=== PATIENT | female | born 1985 | race Caucasian/White ===

== ENCOUNTER 2025-01-18 10:22 | Outpatient (AMB) | payer MEDICAID, SELFPAY ==
[2025-01-18 10:43] VITALS: BP 117/79; PULSE 90; RESP 18; TEMP 36.3; O2SAT 98; BMI 31.8
--- NOTE | 2025-01-18 10:43 | OBCLNT_ITS ---
Vital Signs 01/18/25 10:43 Height 1.6 m Height Method Stated Weight 81.42 kg Weight Measurement Method Standing Scale BMI 31.8 BP 117/79 Blood Pressure Source Automatic Cuff Blood Pressure Location Right Upper Arm Position Sitting Respiration 18 Pulse 90 Pulse Source Monitor Temp 97.4 F Temp Source Temporal Artery Scan Pulse Oximetry (%) 98 Oxygen Delivery Method Room Air Allergies/Home Meds Allergies & Medications Allergies No Known Allergies Allergy (Verified 01/18/25 10:44) Medication Reconciliation prenat.vits,anel,[id number]-[id number] 1 tab PO QDAY 60 days #60 tabs 03/16/20 [Rx Conf irmed 01/18/25] Intake Visit Data Collection New Patient or Established: Established Patient (seen at [facility] within 3 years) Reason for Visit:: OBI TRANSFER Seen by Clinical Staff ONLY (RN/MA): 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 Do You Feel Safe at Home: Yes Authorities Contacted: N/A PCP or OBGYN visit in last 3 months: No Hx Now: Yes Are you currently on any form of Control: No Last menstrual period: 05/17/24 Pain Present Currently: No Pain Scale Used: Wooten-Oakley/Numerical Pain scale:: 0 Smoking Status Smoking Status: Never smoker Immunizations Flu Vaccine in the Last 12 Months: No Flu Vaccine Exclusion Criteria: No Exclusion Criteria Questionnaires Covid-19 Vaccine Questionnaire Has patient been vacinated for Covid-19 Have you been vacinated for Covid-19: No PHQ-9 PHQ-2 Over the last 2 weeks, how often have you been bothered by any of the following problems? 1. Little interest or pleasure in doing things: not at all 2. Feeling down, depressed, or hopeless: not at all Total score: 0 PHQ-9 3. Trouble falling or staying asleep, or sleeping too much: Not at all 4. Feeling tired or having little energy: Not at all 5. Poor appetite or overeating: Not at all 6. Feeling bad about yourself - or that you are a failure or have let yourself or your family down: Not at all 7. Trouble concentrating on things, such as reading the newspaper or watching television: Not at all 8. Moving or speaking so slowly that other people could have noticed? - Or the opposite - being so fidgety or restless that you have been moving around a lot more than usual: not at all 9. Thoughts that you would be better off or of hurting yourself in some way: Not at all Total score: 0 If you checked off any problems, how difficult have these problems made it for you to do your work, take care of things at home, or get along with other people?: not difficult at all Source: Developed by Drs. Amauri Parra, Barbara Pierce, Omega Leyva and colleagues, with an educational aly from [employer]. Depression screen completed yes Social History Living Situation History Marital Status: Lives With: Family Housing: House Tobacco History Smoking Status: Never smoker Second Hand Smoke Exposure: No Alcohol History Alcohol Intake: Never Domestic Abuse History Do You Feel Safe at Home: Yes History of Present Illness HPI Narrative 39-year-old 11 para 7 for OBI. Patient is a transfer from [facility] with records. She reports that she has had no problems so far with the . Her LMP May 15, 2024. Estimated due date is February 19, 2025. First ultrasound was October 26, 2024. Patient was 23 weeks 3 days and this confirmed her LMP dates. She then had another ultrasound at [facility] December 31. Patient was 33 weeks 3 days and measuring in the 50th percentile. No previa was noted. Normal fluid baby was vertex. No anomalies noted patient has a history of asthma. She reports that she only gets symptomatic during the winter times. She uses an albuterol inhaler when she is symptomatic. Denies any wheezing or symptoms at this time. She has not had any surgeries. And denies social habits. Patient is A+, antibody screen negative, RPR nonreactive, rubella NI immune, hepatitis B negative, HIV negative, GC and Chlamydia were negative. Normal 1 hour GTT. Hemoglobin A1c was 4.9. Her last H&H was 11.8/and 36.6. NIPT, AFP and carrier screens all negative. Denies any leaking or bleeding right now. No contractions patient had concerns about 2 previous pregnancies. She reports that with the last and 3rd to last or both augmented with Pitocin. And subsequently developed hemorrhage. Her last she needed to have a Bakri balloon placed. 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 Transfer from [facility] with records. This is patient's 11th and she has 7 kids at home. History of hemorrhage with 2 of her last 3 babies. Her last menstrual period May 15, 2024. EDC by LMP is February 19, 2025. That is confirmed by her 23-week ultrasound at 33-week ultrasound. Reports good movement. Denies leaking, bleeding, contractions continue PNV, CB C and CMP today. discuss ptl precaution, fkc BID. rtc 2 week obc continue PNV, CBC and CMP to day. discuss ptl precaution, fkc BID. rtc 2 week obc, GBS today Menstrual History Menstrual reliability: definite Flow: normal Menstrual regularity: regular Monthly: Yes Age at menarche: 13 On control pills at conception: No OB History : 11 Para: 7 Hx Total # of Abortions (Spontaneous & Elective): 3 # of Living Children: 7 Delivery History 1st : Child's name: YUNG GORMAN date: 04/10/05 sex: male Gestational age at delivery (weeks): 40 Delivery type: vaginal weight (lbs): 3175.147 g History of depression before or after : No 2nd : Child's name: ANTHONY REINOSO date: 02/20/08 sex: male Gestational age at delivery (weeks): 40 Delivery type: vaginal weight (lbs): 3175.147 g History of depression before or after : No 3rd : Child's name: ALLA REINOSO date: 01/01/10 sex: male Gestational age at delivery (weeks): 40 Delivery type: vaginal weight (lbs): 3175.147 g History of depression before or after : No 4th : Child's name: MILE CANDELARIA date: 12/29/11 sex: male Gestational age at delivery (weeks): 40 Delivery type: vaginal weight (lbs): 3175.147 g History of depression before or after : No 5th : Child's name: LARRY CRUZ date: 08/23/17 sex: male Gestational age at delivery (weeks): 40 Delivery type: vaginal weight (lbs): 3175.147 g History of depression before or after : Yes 6th : Child's name: NACHO GOODMAN date: 03/15/20 sex: female Gestational age at delivery (weeks): 40 Delivery type: vaginal weight (lbs): 3175.147 g History of depression before or after : Yes 7th : Child's name: RONALDO GOODMAN date: 02/17/22 sex: male Gestational age at delivery (weeks): 40 Delivery type: vaginal weight (lbs): 3175.147 g History of depression before or after : Yes Infection History & Risk Evaluation History of STDs: none Genetic Screening & History Genetic Screening/Teratology Counseling - Includes patient, baby's father, or anyone in either family with: 1. Patient's age 35 years or older as of estimated date of delivery: Yes 2. Thalassemia (Georgian, Sami, Mediterranean, or Background); MCV less than 80: No 3. Neural Tube Defect (Meningomyelocele, Spina Bifida, or Anencephaly): No 4. Congenital Heart Defect: No 5. Down Syndrome: No 6. Jerson-Sachs (Ashkenazi Latter Day, Cajun, Japanese [place]): No 7. Ingrid Disease (Ashkenazi Latter Day): No 8. Familial Dysautonomia (Ashkenazi Latter Day): No 9. Sickle Cell Disease or Trait (): No 10. Hemophilia or other blood disorders: No 11. Muscular Dystrophy: No 12. Cystic Fibrosis: No 13. [place]'s Chorea: No 14. Mental Retardation/Autism: No 15. Other inherited genetic or chromosomal disorder: No 16. Maternal Metabolic Disorder (EG,TYPE 1 Diabetes, PKU): No 17. Patient or baby's father had a child with defects not listed above: No 18. Recurrent loss or a stillbirth: No 19. Medications (including supplements, vitamins, herbs or otc drugs)/illicit/recreational drugs/alcohol since last menstrual period: No 20. Any other: No Infection History Other (see comments) Source: [employer] Review of Systems Review of Systems Systems Reviewed: All systems reviewed, normal except as documented Exam General Limitations: no limitations General Appearance: alert, in no apparent distress, comfortable, cooperative, healthy appearing, well developed and well groomed Head Head exam: atraumatic, normocephalic and normal inspection Resp Respiratory exam: Present normal lung sounds bilaterally Card Cardiovascular exam: Present regular rate, normal rhythm and normal heart sounds Abdominal Abdominal exam: Present soft and normal bowel sounds Psych Psychiatric exam: Present normal affect and normal mood Office Procedures OBC Clinic LOC & Office Proc's Nursing/Assessment Patient Status: Established Patient OB Clinic Nursing Assessment: Medication Reconciliation, Update PMH in EMR and Vital Signs OB Clinic Coordination of Care: Complex Care and Chronic Disease 1-5, Education Complex Pt/Fam, Consent,records obtained, informed consent, Lab and Imaging orders, Results/Orders obtained and Staff clarify orders Special Needs: Heart tones Established Patient Charge Established Patient Point Assignment: 140 Established Patient Point Charge: EP Level 4 (120-155) Assessment & Plan Diagnosis / Problem List (1) Encounter for supervision of high risk in third trimester, antepartum: Status: Acute (2) Advanced maternal age (AMA) in : Status: Acute (3) Grand multiparity with current in labor and delivery in third trimester: Status: Acute Plan Discussed labor precautions and labor precautions. GBS today. Kick count twice a day. Continue prenatals of iron. CBC and CMP today return in a week or 2 for OB check Additional Plan Follow Up: 1 Week (obc)
== END 2025-01-18 11:21 | disposition home or self-care (01) ==
LOC: HODSOBC 10:22
PROVIDERS: Supervising Provider Advanced Practice Midwife; Visit Provider Advanced Practice Midwife
DX: O09.523 Supervision of elderly multigravida, third trimester (principal); O09.43 Supervision of pregnancy with grand multiparity, third trimester; Z3A.35 35 weeks gestation of pregnancy; Z87.59 Personal history of other complications of pregnancy, childbirth and the puerperium; Z36.85 Encounter for antenatal screening for Streptococcus B
CPT/HCPCS: 99214; G0463

== ENCOUNTER 2025-02-01 10:28 | Outpatient (AMB) | payer MEDICAID, SELFPAY ==
--- NOTE | 2025-02-01 10:49 | OBCLNT_ITS ---
Vital Signs 02/01/25 10:50 Height 1.6 m Height Method Stated Weight 82.214 kg Weight Measurement Method Standing Scale BMI 32.1 BP 110/76 Blood Pressure Source Automatic Cuff Blood Pressure Location Right Upper Arm Position Sitting Respiration 18 Pulse 84 Pulse Source Monitor Temp 97.5 F Temp Source Temporal Artery Scan Pulse Oximetry (%) 98 Oxygen Delivery Method Room Air Allergies/Home Meds Allergies & Medications Allergies No Known Allergies Allergy (Verified 02/01/25 11:18) Medication Reconciliation prenat.vits,anel,[id number] 1 tab PO QDAY 60 days #60 tabs 02/01/25 [Rx] Immunizations Immunizations Flu Vaccine in the Last 12 Months: No Flu Vaccine Exclusion Criteria: No Exclusion Criteria Care OB Visit Log OB Flowsheet Initial Weight: Not Recorded Date -?-?-?-?-?-?-?-?-?-?-?-?- EGA Weight BP Alb Glu CTX Pres Fundal ht FHR Mov Dilation Station Effacement Hx Notes Visit Note 01/18/25 -?-?-?-?-?-?-?-?-?-?-?--?- 35w 3d 81.42 kg 117/79 absent cephalic 35 135 active 39-year-old grand multipara for OB. Transfer from [facility] with records. This is patient's 11th and she has 7 kids at home. History of hemorrhage with 2 of her last 3 babies. Her last menstrual period May 15, 2024. EDC by LMP is February 19, 2025. That is confirmed by her 23-week ultrasound at 33-week ultrasound. Reports good movement. Denies leaking, bleeding, contractions continue PNV, CB C and CMP today. discuss ptl precaution, fkc BID. rtc 2 week obc continue PNV, CBC and CMP to day. discuss ptl precaution, fkc BID. rtc 2 week obc, GBS today 02/01/25 -?-?-?-?-?-?-?-?-?-?-?-?- 37w 3d 82.214 kg 110/76 absent cephalic 37 135 active Fetus active. Denies leaking, bleeding, contractions. Discussed labor precautions. Kick count twice a day. Discussed danger signs and symptoms and GBS positive. Return in a week OB check NIGEL Calculator Estimated Delivery Date Method Current WG Current Estimate 02/19/25 LMP (Certain) 37w 3d Other Estimates 02/19/25 Ultrasound #1 37w 3d 02/15/25 Ultrasound #2 38w 0d 02/19/25 Manual 37w 3d final nigel Notes Visit Date: 02/01/25 Last Updated by: Phoebe Nichole CNM GBS+, , Visit Date: 01/18/25 Last Updated by: Phoebe Nichole CNM sono: 12/31/24: 33w3, 50%/no previa,, A+,abs-, rpr;;nr, rub imm, hbsag-,hiv-,HC-, GC/CT-. 1 hr gtt wnl, A1: 4.9, . NIPT and carrier scr een- Office Procedures OBC Clinic LOC & Office Proc's Nursing/Assessment Patient Status: Established Patient OB Clinic Nursing Assessment: Medication Reconciliation, Update PMH in EMR and Vital Signs OB Clinic Coordination of Care: Complex Care and Chronic Disease 1-5, Education Complex Pt/Fam, Consent,records obtained, informed consent, Lab and Imaging orders, Results/Orders obtained and Staff clarify orders Special Needs: Heart tones Established Patient Charge Established Patient Point Assignment: 140 Established Patient Point Charge: EP Level 4 (120-155) Assessment & Plan Diagnosis / Problem List (1) Grand multiparity with current in labor and delivery in third trimester: Status: Acute (2) Advanced maternal age (AMA) in : Status: Acute (3) Encounter for supervision of high risk in third trimester, antepartum: Status: Acute Plan Discussed labor precautions. Kick count twice a day. Discussed GBS positive. And danger signs symptoms ER precautions. Return in a week OB check Additional Plan Follow Up: 1 Week (obc)
[2025-02-01 10:50] VITALS: BP 110/76; PULSE 84; RESP 18; TEMP 36.4; O2SAT 98; BMI 32.1
== END 2025-02-01 11:32 | disposition home or self-care (01) ==
PROVIDERS: Supervising Provider Advanced Practice Midwife; Visit Provider Advanced Practice Midwife
DX: O09.523 Supervision of elderly multigravida, third trimester (principal); O09.43 Supervision of pregnancy with grand multiparity, third trimester; O09.893 Supervision of other high risk pregnancies, third trimester; O99.820 Streptococcus B carrier state complicating pregnancy; Z3A.37 37 weeks gestation of pregnancy
CPT/HCPCS: 99214; G0463